=== PATIENT | male | born 1980 | race African-American/Black ===

== ENCOUNTER 2021-01-03 17:34 | Emergency (ER) | payer MEDICAID ==
[~2021-01-03] VITALS: Ht 170.2 cm; Wt 63.6 kg
[~2021-01-03 17:34] MED LIST: NOCURR
[2021-01-03] MEDS ORDERED: IBUPROFEN 600 MG TABLET PO ONE (18:15)
[2021-01-03] MEDS ORDERED: ACETAMINOPHEN 500 MG TABLET PO ONE (18:15)
[2021-01-03] MEDS ORDERED: LIDOCAINE 5% TRANSDERMAL PATCH TD ONE (18:15)
[2021-01-03 20:04] VITALS: BP 144/86
== END 2021-01-03 20:18 | disposition home or self-care (01) ==
LOC: EMS 17:38
DX: S29.011A Strain of muscle and tendon of front wall of thorax, initial encounter (principal); F17.210 Nicotine dependence, cigarettes, uncomplicated; X50.0XXA Overexertion from strenuous movement or load, initial encounter; Y93.89 Activity, other specified; Y92.89 Other specified places as the place of occurrence of the external cause; Y99.8 Other external cause status
CPT/HCPCS: 71101; 99284; G0238; 94799; Z7502; Z7610

== ENCOUNTER 2021-10-11 15:41 | Emergency (ER) | payer MEDICAID ==
[~2021-10-11] VITALS: Ht 167.6 cm; Wt 66.8 kg
[2021-10-11 16:41] VITALS: BP 122/63
[2021-10-11 18:13] LABS: BASOPHILS % (AUTO) 1.5 % (0.0-2.0); EOSINOPHILS % (AUTO) 11.1 % (1.0-6.0); HEMOGLOBIN 12.6 g/dL (13.5-17.5); LYMPHOCYTES # (AUTO) 2.1 K/uL (1.0-4.8); LYMPHOCYTES % (AUTO) 41.7 % (22.0-44.0); MEAN CORPUSCULAR HEMOGLOBIN 34.1 pg (26.0-34.0); MEAN CORPUSCULAR HGB CONC 34.2 G/dL (31.0-37.0); MEAN CORPUSCULAR VOLUME 100 fL (80-100); MONOCYTES # (AUTO) 0.4 K/uL (0.1-1.0); MONOCYTES % (AUTO) 7.9 % (2.0-9.0); NEUTROPHILS # (AUTO) 1.9 K/uL (1.8-7.7); NEUTROPHILS % (AUTO) 37.8 % (40.0-70.0); PLATELET COUNT (AUTO) 244 K/uL (150-450); RED BLOOD CELL COUNT(AUTO) 3.71 MIL/uL (4.50-5.90); RED CELL DISTRIBUTION WIDTH 13.6 % (11.5-14.5)
[2021-10-11 18:27] LABS: ALANINE AMINOTRANSFERASE 19 U/L (12-78); ALKALINE PHOSPHATASE 77 U/L (46-116); ANION GAP 20 mmol/L (8-16); ASPARTATE AMINOTRANSFERASE 42 U/L (15-37); BILIRUBIN,TOTAL 0.1 mg/dL (0.1-1.0); CALCIUM, TOTAL 8.8 mg/dL (8.8-10.5); CARBON DIOXIDE 26 mmol/L (22-29); CHLORIDE 102 mmol/L (98-107); CREATININE 0.64 mg/dL (0.60-1.30); GLUCOSE,RANDOM 123 mg/dL (70-110); LIPASE 148 U/L (73-393); SODIUM SERUM 148 mmol/L (136-145); TOTAL PROTEIN, SERUM 7.3 g/dL (6.4-8.2); UREA NITROGEN, BLOOD 6 mg/dL (7-18)
[2021-10-11 18:28] LABS: GLOMERULAR FILTR. RATE CALC > 60 mL/min (>60)
[2021-10-11] MEDS ORDERED: POTASSIUM CHLORIDE 20 MEQ ER TABLET PO ONE (18:45)
== END 2021-10-11 18:44 | disposition home or self-care (01) ==
LOC: EMS 15:46
DX: R10.12 Left upper quadrant pain (principal); E87.6 Hypokalemia; F10.20 Alcohol dependence, uncomplicated; F17.210 Nicotine dependence, cigarettes, uncomplicated
CPT/HCPCS: 80053; 83690; 84484; 85025; 93005; 99284

== ENCOUNTER 2023-03-30 22:11 | Emergency (ER) | payer SELFPAY ==
[~2023-03-30] VITALS: Ht 170.2 cm; Wt 66.8 kg
[2023-03-30 22:13] VITALS: BP 141/101; PULSE 88; RESP 18; TEMP 97.6
[2023-03-30 22:48] LABS: APPEARANCE,URINE CLEAR (CLEAR); BILIRUBIN,URINE NEGATIVE (NEGATIVE); COLOR,URINE LIGHT YELLOW (YELLOW); GLUCOSE, URINE (UA) NEGATIVE (NEGATIVE); KETONES,URINE NEGATIVE (NEGATIVE); LEUKOCYTE ESTERASE ,URINE NEGATIVE (NEGATIVE); NITRATE,URINE NEGATIVE (NEGATIVE); OCCULT BLOOD,URINE NEGATIVE (NEGATIVE); PROTEIN,URINE NEGATIVE (NEGATIVE); SPECIFIC GRAVITIY, URINE 1.006 (1.003-1.030); UROBILINOGEN,URINE <=1.0 mg/dL (<=1.0)
== END 2023-03-30 23:30 | disposition left against medical advice (07) ==
LOC: EMS 22:32
DX: R10.9 Unspecified abdominal pain (principal); Z53.21 Procedure and treatment not carried out due to patient leaving prior to being seen by health care provider
CPT/HCPCS: 81003; 99281

== ENCOUNTER 2023-12-04 11:14 | Emergency (ER) | payer SELFPAY ==
[~2023-12-04] VITALS: Ht 167.6 cm; Wt 65.9 kg
[2023-12-04 11:17] VITALS: TEMP 98.3
[2023-12-04] MEDS: KETOROLAC TROMETHAMINE 30 MG/ML VIAL IM ONE (12:13)
[2023-12-04] MEDS: TraMADol HCL 50 MG TABLET PO ONE (12:13)
[2023-12-04] MEDS: LIDOCAINE 5% TRANSDERMAL PATCH TD ONE (12:13)
[2023-12-04 13:20] VITALS: BP 135/86; PULSE 84; RESP 16; O2SAT 98
[2023-12-04] MEDS ORDERED: CYCL-448 PO (13:54)
[2023-12-04] MEDS ORDERED: LIDO700A15 TP (13:54)
== END 2023-12-04 14:12 | disposition home or self-care (01) ==
LOC: EMS 11:22
DX: S16.1XXA Strain of muscle, fascia and tendon at neck level, initial encounter (principal); M25.512 Pain in left shoulder; F17.210 Nicotine dependence, cigarettes, uncomplicated; F10.10 Alcohol abuse, uncomplicated; X58.XXXA Exposure to other specified factors, initial encounter; Y93.89 Activity, other specified; Y92.89 Other specified places as the place of occurrence of the external cause; Y99.8 Other external cause status
CPT/HCPCS: 99283; 72040; 96372; J1885

== ENCOUNTER 2024-03-16 06:49 | Emergency (ER) | payer OTHER ==
[~2024-03-16] VITALS: Ht 167.6 cm; Wt 60.0 kg
[~2024-03-16 06:49] MED LIST changes: +CYCL-448 PO; +LIDO700A15 TP
[2024-03-16 07:31] VITALS: TEMP 98.3
[2024-03-16 07:35] LABS: BASOPHILS % (AUTO) 0.9 % (0.0-2.0); HEMOGLOBIN 12.7 g/dL (13.5-17.5); LYMPHOCYTES # (AUTO) 1.5 K/uL (1.0-4.8); LYMPHOCYTES % (AUTO) 29.3 % (22.0-44.0); MEAN CORPUSCULAR HEMOGLOBIN 35.8 pg (26.0-34.0); MEAN CORPUSCULAR HGB CONC 34.2 G/dL (31.0-37.0); MEAN CORPUSCULAR VOLUME 105 fL (80-100); MONOCYTES # (AUTO) 0.2 K/uL (0.1-1.0); MONOCYTES % (AUTO) 4.7 % (2.0-9.0); NEUTROPHILS # (AUTO) 2.8 K/uL (1.8-7.7); NEUTROPHILS % (AUTO) 55.1 % (40.0-70.0); PLATELET COUNT (AUTO) 124 K/uL (150-450); RED BLOOD CELL COUNT(AUTO) 3.53 MIL/uL (4.50-5.90); RED CELL DISTRIBUTION WIDTH 15.4 % (11.5-14.5)
[2024-03-16 07:42] LABS: ANION GAP 13 mmol/L (8-16); CALCIUM, TOTAL 9.1 mg/dL (8.8-10.5); CARBON DIOXIDE 30 mmol/L (22-29); CHLORIDE 95 mmol/L (98-107); CREATININE 0.88 mg/dL (0.60-1.30); GLOMERULAR FILTR. RATE CALC > 60 mL/min (>60); GLUCOSE,RANDOM 106 mg/dL (70-110); POTASSIUM 3.3 mmol/L (3.5-5.1); SODIUM SERUM 138 mmol/L (136-145); UREA NITROGEN, BLOOD 7 mg/dL (7-18)
[2024-03-16] MEDS: LevETIRAcetam 1,000 MG in DEXTROSE 5%-WATER 100 ML IV ONE (07:47)
[2024-03-16] MEDS: LORazepam 2 MG/ML VIAL IVP ONE (07:47)
[2024-03-16 07:52] LABS: TROPONIN I-HIGH SENSITIVITY 10 ng/L (<76)
[2024-03-16 08:08] LABS: ALCOHOL, BLOOD (SERUM) 6 mg/dL (0-10)
[2024-03-16 09:30] VITALS: BP 126/87; PULSE 84; RESP 16; O2SAT 97
[2024-03-16] MEDS ORDERED: LEVE-71 PO (09:33)
== END 2024-03-16 10:09 | disposition home or self-care (01) ==
LOC: EMS 06:50
DX: R56.9 Unspecified convulsions (principal); R25.1 Tremor, unspecified; F17.210 Nicotine dependence, cigarettes, uncomplicated
CPT/HCPCS: 99285; 96365; 70450; 96375; 80048; 84484; 85025; 36415; J0712; G0480; J2060; J7060

== ENCOUNTER 2024-06-12 19:45 | Emergency (ER) | payer OTHER ==
[~2024-06-12] VITALS: Ht 170.2 cm; Wt 58.4 kg
[~2024-06-12 19:45] MED LIST changes: +LEVE-71 PO
[2024-06-12 19:47] VITALS: TEMP 97.9
[2024-06-12 21:39] LABS: BASOPHILS % (AUTO) 0.8 % (0.0-2.0); EOSINOPHILS % (AUTO) 13.4 % (1.0-6.0); HEMATOCRIT 39.2 % (41-53); HEMOGLOBIN 13.3 g/dL (13.5-17.5); LYMPHOCYTES # (AUTO) 2.4 K/uL (1.0-4.8); LYMPHOCYTES % (AUTO) 46.8 % (22.0-44.0); MEAN CORPUSCULAR HEMOGLOBIN 35.7 pg (26.0-34.0); MEAN CORPUSCULAR HGB CONC 34.1 G/dL (31.0-37.0); MEAN CORPUSCULAR VOLUME 105 fL (80-100); MONOCYTES # (AUTO) 0.3 K/uL (0.1-1.0); MONOCYTES % (AUTO) 5.1 % (2.0-9.0); NEUTROPHILS # (AUTO) 1.7 K/uL (1.8-7.7); NEUTROPHILS % (AUTO) 33.9 % (40.0-70.0); PLATELET COUNT (AUTO) 192 K/uL (150-450); RED BLOOD CELL COUNT(AUTO) 3.74 MIL/uL (4.50-5.90); RED CELL DISTRIBUTION WIDTH 13.8 % (11.5-14.5); WHITE BLOOD COUNT (AUTO) 5.1 K/uL (4.5-11.0)
[2024-06-12 21:46] LABS: ANION GAP 9 mmol/L (8-16); CALCIUM, TOTAL 9.4 mg/dL (8.8-10.5); CARBON DIOXIDE 29 mmol/L (22-29); CHLORIDE 102 mmol/L (98-107); GLOMERULAR FILTR. RATE CALC > 60 mL/min (>60); GLUCOSE,RANDOM 170 mg/dL (70-110); POTASSIUM 3.3 mmol/L (3.5-5.1); SODIUM SERUM 140 mmol/L (136-145); UREA NITROGEN, BLOOD 7 mg/dL (7-18)
[2024-06-12 22:32] LABS: ALBUMIN 4.1 g/dL (3.4-5.0); BILIRUBIN,DIRECT 0.1 mg/dL (0.00-0.20); BILIRUBIN,TOTAL 0.2 mg/dL (0.1-1.0); TOTAL PROTEIN, SERUM 7.7 g/dL (6.4-8.2)
[2024-06-12 22:38] VITALS: BP 134/94; PULSE 84; RESP 18; O2SAT 98
[2024-06-12] MEDS ORDERED: CHLO10CA7 PO (22:41)
== END 2024-06-12 22:50 | disposition home or self-care (01) ==
LOC: EMS 19:45
DX: F10.20 Alcohol dependence, uncomplicated (principal); F12.90 Cannabis use, unspecified, uncomplicated; F17.210 Nicotine dependence, cigarettes, uncomplicated; Z79.899 Other long term (current) drug therapy; Y90.8 Blood alcohol level of 240 mg/100 ml or more
CPT/HCPCS: 99283; 80048; 80076; 85025; 36415; G0480